=== PATIENT | male | born 1975 | race Caucasian/White ===

== ENCOUNTER 2018-04-30 22:46 | Emergency (ER) | payer SELFPAY ==
[2018-05-01] MEDS ORDERED: Albuterol-Ipratrop 3 mg / 0.5 (3 ml) UD INH STA ×2 (00:19→00:20)
[2018-05-01] MEDS ORDERED: Albuterol-Ipratrop 3 mg / 0.5 (3 ml) UD ONE (00:34)
--- NOTE | 2018-05-01 01:01 | C.PDOC ---
History Of Present Illness 42 y/o male presents to the ER complaining of progressive SOB over the past two days. He states he ran out of his asthma medication two days ago. The patient reports feeling congested and experiencing severe SOB after taking a hot bath earlier today, prompting ED visit. He denies any productive cough, chest pain or sputum production. Time Seen by Provider: 04/30/18 23:35 Chief Complaint (Nursing): Shortness Of Breath History Per: Patient History/Exam Limitations: no limitations Onset/Duration Of Symptoms: Days Current Symptoms Are (Timing): Still Present Initiating Event: Other (Hot Shower) Current Respiratory Medications: Albuterol Associated Symptoms: denies: Fever, Chest Pain, Productive Cough Recent travel outside of the [place]: Yes ([place]) Past Medical History Reviewed: Historical Data, Nursing Documentation, Vital Signs Vital Signs: Last Vital Signs Temp 98.9 F 05/01/18 01:34 Pulse 86 05/01/18 01:34 Resp 20 05/01/18 01:34 BP 130/68 05/01/18 01:34 Pulse Ox 99 05/01/18 01:34 - Medical History PMH: Asthma Denies: Diabetes, Hepatitis, HIV, HTN, Seizures, Sexually Transmitted Disease Other Surgeries: Right Hand Surgery Family History: States: Unknown Family Hx - Social History Hx Tobacco Use: No Hx Alcohol Use: Yes Hx Substance Use: No - Immunization History Hx Tetanus Toxoid Vaccination: No Hx Influenza Vaccination: No Hx Pneumococcal Vaccination: No Review Of Systems Except As Marked, All Systems Reviewed And Found Negative. Constitutional: Negative for: Fever Eyes: Negative for: Pain, Vision Change, Conjunctivae Inflammation ENT: Negative for: Ear Pain, Ear Discharge Cardiovascular: Negative for: Chest Pain, Palpitations, Orthopnea, Paroxysmal Noc. Dyspnea Respiratory: Positive for: Shortness of Breath, Wheezing. Negative for: Cough, SOB with Excertion, Sputum Gastrointestinal: Negative for: Nausea, Vomiting, Abdominal Pain, Diarrhea Genitourinary: Negative for: Dysuria, Frequency Musculoskeletal: Negative for: Neck Pain, Shoulder Pain, Arm Pain Neurological: Negative for: Weakness, Dizziness Psych: Negative for: Anxiety, Depression Physical Exam - Physical Exam Appears: Well, Non-toxic, No Acute Distress Skin: Normal Color, Warm, Dry Head: Atraumatic, Normacephalic Eye(s): bilateral: Normal Inspection, PERRL, EOMI Ear(s): Bilateral: Normal Oral Mucosa: Moist Tongue: Normal Appearing Lips: Normal Appearing Teeth: Normal Dentition Gingiva: Normal Appearing Neck: Normal Chest: Symmetrical Cardiovascular: Rhythm Regular, No Murmur Respiratory: Normal Breath Sounds, No Rales, No Rhonchi, Wheezing, Other (lungs clear to auscultation. Cough in non productive) Gastrointestinal/Abdominal: Bowel Sounds, No Tenderness, No Distention Extremity: Bilateral: Atraumatic, No Pedal Edema, Normal Color And Temperature, Normal ROM Neurological/Psych: Oriented x3, Normal Speech ED Course And Treatment O2 Sat by Pulse Oximetry: 97 (RA) Pulse Ox Interpretation: Normal Medical Decision Making Medical Decision Making: Impression: 42 y/o male with Hx of asthma and progressive SOB Plan: --Chest X-Ray no acute pathology --Albuterol x 4-6 tx with atrovent steorids given pt improved prior to dc home. --Nebulizer treatment Disposition Counseled Patient/Family Regarding: Diagnosis - Disposition [place]: [facility] [place] [facility] [Outside] [facility] [Outside] Disposition: HOME/ ROUTINE Disposition Time: 01:14 Condition: GOOD Additional Instructions: return if symptoms worsen Prescriptions: Albuterol HFA [Ventolin HFA 90 mcg/actuation (8 g)] 2 puff IH [id number] 30 Days # 1 puff predniSONE [Prednisone] 60 mg PO DAILY 5 Days #15 tab Forms: [employer] (E[place]ian) - Clinical Impression Clinical Impression: Asthma attack, Dyspnea, Respiratory distress, Respiratory tract infection - 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 - Scribe Statement The provider has reviewed the documentation as recorded by the Scribe (Darlene Mckinney) All medical record entries made by the Scribe were at my direction and personally dictated by me. I have reviewed the chart and agree that the record accurately reflects my personal performance of the history, physical exam, medical decision making, and the department course for this patient. I have also personally directed, reviewed, and agree with the discharge instructions and disposition.
[2018-05-01 01:37] VITALS: BP 130/68; PULSE 86; RESP 20; TEMP 98.9
[2018-05-01 05:34] VITALS: O2SAT 97
--- NOTE | 2018-05-01 11:42 | RAD ---
HISTORY: SOB, ASTHMA, COUGH COMPARISON: Chest x-ray performed 09/11/13 TECHNIQUE: Chest PA and lateral FINDINGS: Examination limited by habitus. LUNGS: No focal consolidation. Please note that chest x-ray has limited sensitivity for the detection of pulmonary masses. PLEURA: No significant pleural effusion identified. No definite pneumothorax . CARDIOVASCULAR: Heart size appears within normal limits. OSSEOUS STRUCTURES: Degenerative changes of the spine. VISUALIZED UPPER ABDOMEN: Unremarkable. OTHER FINDINGS: None. IMPRESSION: No focal consolidation identified.
== END 2018-05-01 01:37 | disposition home or self-care (01) ==
LOC: C.ER 22:46
DX: J45.909 Unspecified asthma, uncomplicated (principal)